=== PATIENT | male | born 1980 | race Caucasian/White ===

== ENCOUNTER 2021-11-18 11:41 | Emergency (ER) | payer OTHER ==
[2021-11-18 12:04] LABS: HEMOGLOBIN 14.7 gm/dl (14.0-17.5); RED BLOOD COUNT 4.79 M/UL (4.20-5.50); WHITE BLOOD COUNT 11.3 K/UL (4.5-11.0)
[2021-11-18 12:41] LABS: BUN/CREATININE RATIO 22 (0-10)
== END 2021-11-18 15:30 | disposition home or self-care (01) ==
LOC: ER1 11:41
PROVIDERS: Nurse Practitioner
DX: R07.89 Other chest pain (principal); F17.200 Nicotine dependence, unspecified, uncomplicated
CPT/HCPCS: 71045; 80053; 80307; 81001; 82550; 82553; 84484; 85025; 93005; 99285